=== PATIENT | female | born 1975 | race Asian ===

== ENCOUNTER → 2018-07-22 | Outpatient (CLI) | payer BC ==
--- NOTE | 2018-07-22 15:06 | WOMENS IMAGING REPORT ---
EXAM DESCRIPTION: BILAT SCREENING MAMMO W/CAD COMPLETED DATE/TIME: 07/22/2018 2:52 pm REASON FOR STUDY: ROUTINE SCREENING Z12.31 Z12.31 ENCNTR SCREEN MAMMOGRAM FOR MALIGNANT NEOPLASM OF ZACH COMPARISON: None. TECHNIQUE: Standard craniocaudal and mediolateral oblique views of each breast recorded using digita l acquisition. LIMITATIONS: None. FINDINGS: No masses, calcifications or architectural distortion. No areas of suspicion. Read with the assistance of CAD. .[facility] - R2 Cenova Version 1.3 .[facility] - R2 Cenova Version 1.3 .[facility] - R2 Cenova Version 2.4 .[facility] - R2 Cenova Version 2.4 .[facility] - R2 Purchasing And Claims Supervisor Version 9.2 IMPRESSION: NORMAL MAMMOGRAM. BIRADS 1. BREAST DENSITY: c. The breasts are heterogeneously dense, which may obscure small masses. BIRAD: 1 NEGATIVE RECOMMENDATION: ROUTINE SCREENING COMMENT: The patient has been notified of the results by letter per SA requirements. Additional no tification policies are in place for contacting patient with suspicious or incomplete findings. Quality ID #[id number]: The [employer] recommends an annual screening mammogram for women aged 40 years or over. This facility utilizes a reminder system to ensure that all patients receive reminder letters, and/or direct phone calls for appointments. This includes reminders for routine scr eening mammograms, diagnostic mammograms, or other Breast Imaging Interventions when appropriate. Th is patient will be placed in the appropriate reminder system. The [employer] [place] [employer] (ACR) has developed recommendations for screening MRI of the breast s in certain patient populations, to be used in conjunction with mammography. Breast MRI surveillanc e may be appropriate for women with more than 20% lifetime risk of developing breast cancer as deter mined by genetic testing, significant family history of the disease, or history of mantle radiation f or Hodgkins Disease. ACR Practice Guidelines 2008. TECHNICAL DOCUMENTATION: FINDING NUMBER: (1) ASSESSMENT: (1) JOB ID: [id number] [employer]- All Rights Reserved Reading location - IP/workstation name: [email or web address]
== END ==
LOC: WI 14:47
PROVIDERS: ATTEND Nurse Practitioner Family
DX: Z12.31 Encounter for screening mammogram for malignant neoplasm of breast (principal)
CPT/HCPCS: 77067

== ENCOUNTER 2020-04-07 12:12 | Emergency (ER) | payer BC ==
--- NOTE | 2020-04-07 12:33 | ER Document Report ---
ED Medical Screen (RME) - General Chief Complaint: Chest Pain Stated Complaint: CHEST PAIN Time Seen by Provider: 04/07/20 12:30 Primary Care Provider: CLARA LEVI FNP-C [Primary Care Provider] - Follow up as needed Notes: This 45-year-old female with sudden onset substernal chest pain this morning she has had some intermittent bouts in the past she does have a familial history of VA. TRAVEL OUTSIDE OF THE U.S. IN LAST 30 DAYS: No - Related Data Allergies/Adverse Reactions: No Known Allergies Allergy (Unverified 04/07/20 12:26) Physical Exam - Vital signs Vitals: Temp Pulse Resp BP Pulse Ox 98.7 F 67 14 138/74 H 98 04/07/20 12:22 04/07/20 12:22 04/07/20 12:22 04/07/20 12:22 04/07/20 12:22 Course - Vital Signs Vital signs: Temp Pulse Resp BP Pulse Ox 98.7 F 67 14 138/74 H 98 04/07/20 12:22 04/07/20 12:22 04/07/20 12:22 04/07/20 12:22 04/07/20 12:22 Doctor's Discharge - Discharge Referrals: CLARA LEVI FNP-C [Primary Care Provider] - Follow up as needed
[2020-04-07 13:12] LABS: ABSOLUTE LYMPHOCYTES (AUTO) 1.6 10^3/uL (0.5-4.7); ABSOLUTE MONOCYTES (AUTO) 0.5 10^3/uL (0.1-1.4); ABSOLUTE NEUT (AUTO) 4.7 10^3/uL (1.7-8.2); BASOPHILS % (AUTO) 0.4 % (0-2); EOSINOPHILS % (AUTO) 0.1 % (0-6); HEMATOCRIT 43.3 % (36.0-47.0); HEMOGLOBIN 14.8 g/dL (12.0-15.5); LYMPHOCYTES % (AUTO) 22.7 % (13-45); MEAN CORPUSCULAR VOLUME 94 fl (80-97); MONOCYTES % (AUTO) 7.7 % (3-13); PLATELET COUNT 225 10^3/uL (150-450); RED BLOOD COUNT 4.61 10^6/uL (3.72-5.28); RED CELL DISTRIBUTION WIDTH 12.6 % (11.5-14.0); SEGMENTED NEUTROPHILS % (AUTO) 69.1 % (42-78); TOTAL CELLS COUNTED % (AUTO) 100 %; WHITE BLOOD COUNT 6.9 10^3/uL (4.0-10.5)
[2020-04-07 13:28] LABS: ALBUMIN 4.9 g/dL (3.5-5.0); ALKALINE PHOSPHATASE 47 U/L (38-126); ANION GAP 8 (5-19); ASPARTATE AMINO TRANSFERASE 24 U/L (14-36); BILIRUBIN,TOTAL 0.7 mg/dL (0.2-1.3); BLOOD UREA NITROGEN 10 mg/dL (7-20); CALCIUM 9.5 mg/dL (8.4-10.2); CARBON DIOXIDE 25 mmol/L (22-30); CHLORIDE 104 mmol/L (98-107); GLUCOSE 121 mg/dL (75-110); POTASSIUM 3.9 mmol/L (3.6-5.0); TOTAL PROTEIN 8.2 g/dL (6.3-8.2)
--- NOTE | 2020-04-07 13:42 | RADIOLOGY REPORT (SQ) ---
EXAM DESCRIPTION: CT HEAD WITHOUT IMAGES COMPLETED DATE/TIME: 04/07/2020 12:56 pm REASON FOR STUDY: pain COMPARISON: None. TECHNIQUE: Axial images acquired through the brain without intravenous contrast. Images reviewed wi th bone, brain and subdural windows. Additional sagittal and coronal reconstructions were generated. Images stored on PACS. All CT scanners at this facility use dose modulation, iterative reconstruction, and/or weight based d osing when appropriate to reduce radiation dose to as low as reasonably achievable (ALARA). [facility]: Dose Right [facility]: CareDose [facility]: Dose Right [facility]: Teradose 4D [facility]: Attracta RADIATION DOSE: CT Rad equipment meets quality standard of care and radiation dose reduction techniq ues were employed. CTDIvol: 53.2 mGy. DLP: 1017 mGy-cm. mGy. LIMITATIONS: None. FINDINGS: VENTRICLES: Normal size and contour. CEREBRUM: No masses. No hemorrhage. No midline shift. No evidence for acute infarction. Normal gra y/white matter differentiation. No areas of low density in the white matter. CEREBELLUM: No masses. No hemorrhage. No alteration of density. No evidence for acute infarction. EXTRAAXIAL SPACES: No fluid collections. No masses. ORBITS AND GLOBE: No intra- or extraconal masses. Normal contour of globe without masses. CALVARIUM: No fracture. PARANASAL SINUSES: No fluid or mucosal thickening. SOFT TISSUES: No mass or hematoma. OTHER: No other significant finding. IMPRESSION: NORMAL BRAIN CT WITHOUT CONTRAST. EVIDENCE OF ACUTE STROKE: NO. COMMENT: Quality ID # [id number]: Final reports with documentation of one or more dose reduction techniques (e.g., Automated exposure control, adjustment of the mA and/or kV according to patient size, use of iterative reconstruction technique) TECHNICAL DOCUMENTATION: JOB ID: [id number] 2010 [employer]- All Rights Reserved Reading location - IP/workstation name: [email or web address]
--- NOTE | 2020-04-07 17:44 | ER Document Report ---
ED General <VICTORIASILVESTRE NG - Last Filed: 04/07/20 18:41> - General TRAVEL OUTSIDE OF THE U.S. IN LAST 30 DAYS: No <RAMESH OLGUIN - Last Filed: 04/08/20 02:59> - General Chief Complaint: Chest Tightness Stated Complaint: CHEST PAIN Time Seen by Provider: 04/07/20 12:30 Primary Care Provider: [facility] [Provider Group] - Follow up as needed [facility] [Outside] - Follow up as needed [facility] [Outside] - Follow up as needed [facility] [Outside] - Follow up as needed CLARA LEVI FNP-C [Primary Care Provider] - Follow up as needed - HPI Notes: This is a 45-year-old female who presents to the emergency department for evaluation of chest pain. She states she is had intermittently for some time, but got it today during a meeting where they were talking about mandatory masks. She states that she feels foggy when she wears a mask. She also admits that it may be secondary to stress. She really will get into details with me in regards to that. She talks about a divorce that was several years ago. She talks about her children, but makes no specific references. She denies any suicidal or homicidal ideation. She denies any visual or auditory hallucination. She states she just feels "hopeless." She states that she feels like her lungs and heart are being squeezed. She feels some shortness of breath. Some occasional nausea. She denies any diaphoresis or near syncope. She used to see a counselor in [place], but has not since moving to this area. She was recommended to be on medications, was not compliant with them. She admitted to a history of self injury, including cutting. She also states she tried to commit suicide as a teenager, when her mother committed suicide. (RMAESH OLGUIN) - Related Data Allergies/Adverse Reactions: No Known Allergies Allergy (Unverified 04/07/20 12:26) Past Medical History - General Information source: Patient - Social History Smoking Status: Current Every Day Smoker Frequency of alcohol use: None Drug Abuse: Marijuana Family History: Other - Depression in mother Patient has homicidal ideation: No Psychiatric Medical History: Reports: Hx Anxiety, Hx Bipolar Disorder, Hx Post Traumatic Stress Disorder <RAMESH OLGUIN - Last Filed: 04/08/20 02:59> Review of Systems - Review of Systems Cardiovascular: See HPI Neurological/Psychological: See HPI -: Yes All other systems reviewed and negative <RAMESH OLGUIN - Last Filed: 04/08/20 02:59> Physical Exam <RAMESH OLGUIN - Last Filed: 04/08/20 02:59> - Vital signs Vitals: Temp Pulse Resp BP Pulse Ox 98.7 F 67 14 138/74 H 98 04/07/20 12:22 04/07/20 12:22 04/07/20 12:22 04/07/20 12:22 04/07/20 12:22 - Notes Notes: This is an anxious appearing 45-year-old female who appears her stated age. Upon interviewing the patient becomes more anxious, then tearful. She does make good eye contact, does not seem to be reacting to internal stimuli. She is cooperative with examiner. Vital signs reviewed, please refer to chart. Head is normocephalic, atraumatic. Pupils equal round, reactive to light. Neck is supple without meningismus. Heart is regular rate and rhythm. Lungs are clear to auscultation bilaterally. Abdomen is soft, nontender, normoactive bowel sounds throughout. Extremities without cyanosis, clubbing. Posterior calves are nontender. Peripheral pulses are equal. Skin is warm and dry. Patient is awake, alert, oriented x3. Cranial nerves II - XII are grossly intact without focal neurological deficits. Strength is plus 5 out of 5 bilateral upper and lower extremities. Sensation is intact. Reflexes symmetrical. Intact taqslh-[id number]-exrbkn, rapid alternating movements, [id number]. (RAMESH OLGUIN) Course - Laboratory Result Diagrams: 04/07/20 12:45 04/07/20 12:45 <SILVESTRE BORRERO - Last Filed: 04/07/20 18:41> - Laboratory Result Diagrams: 04/07/20 12:45 04/07/20 12:45 - Diagnostic Test Radiology reviewed: Reports reviewed <RAMESH OLGUIN - Last Filed: 04/08/20 02:59> - Re-evaluation Re-evalutation: 04/07/20 17:43 Patient presents to the emergency department for evaluation. Initial laboratory investigation was ordered through triage. CT head was normal. She has a normal neurological exam. I suspect most of this is stress related. I did review her blood work which is unremarkable, EKG was unremarkable. I did order a chest x- ray in this patient with chest pain. I also added a consult to our psychosocial team. Case was discussed with Fifi to work out possible outpatient counseling. Patient is amenable to this plan. She is currently stable, we will continue to monitor. 04/07/20 18:56 Psychosocial evaluation occurred. Patient feels safe going home. She is set up with outpatient resources. I will go ahead and start BuSpar 5 mg twice a day for her anxiety, which I do believe is a large component of her illness at this time. We will give her a work excuse. She is to follow-up with [facility], primary care, and return to the ED with worsening or new concerning symptoms of any sort. (RAMESH OLGUIN) - Vital Signs Vital signs: Temp Pulse Resp BP Pulse Ox 98.1 F 67 20 118/87 H 97 04/07/20 18:58 04/07/20 12:22 04/07/20 18:58 04/07/20 18:58 04/07/20 18:58 - Laboratory Laboratory results interpreted by me: 04/07/20 12:45 Sodium 136.7 L Glucose 121 H - EKG Interpretation by Me Additional EKG results interpreted by me: 04/07/20 17:44 Sinus mechanism with a rate of 70 bpm. Normal axis and intervals. No acute ST changes concerning for ischemia or infarction. (RAMESH OLGUIN) Discharge <SILVESTRE BORRERO - Last Filed: 04/07/20 18:41> <RAMESH OLGUIN - Last Filed: 04/08/20 02:59> - Discharge Clinical Impression: Anxiety, Depression, Stress Condition: Stable Disposition: HOME, SELF-CARE Additional Instructions: You have been evaluated by both medical and behavioral health teams for anxiety and depression. You have been deemed appropriate for discharge. While in the emergency department you received the following services/or had access to: Medical screening and assessment, nursing services, dietary services, pharmacological services, one-on-one counseling and/or psychotherapy, environmental services, and continuous observation by a patient safety and occupational health manager. Medication such as Buspar is often used to help manage anxiety and depression. It is nonaddictive. You are recommended to establish services with a local outpatient mental health provider for both medication management and therapy. You should also follow up with your Primary Care Provider for your Thyroid as it can affect mood if your levels are off. Anxiety (often anxiety and depression go hand in hand) The physician feels that some of your health problems are being caused by anxiety. Anxiety affects your health in many ways. Anxiety alone can cause palpitations, sweats, chest pains, abdominal pains, shortness of breath, and headaches. It contributes to ulcer disease, high blood pressure, irritable bowel syndrome, and has been shown to cause flare-ups of many other diseases. Anxiety is not a simple disorder to treat. If the anxiety is due to recent life stresses, you may simply need time to "work through" the changes. If the anxiety is due to an underlying unhappiness with yourself or due to psychiatric disturbance, professional help will be needed. Your physician can refer you for further help if needed. Anti-anxiety medication is occasionally given if the stress is acute or if you are having trouble sleeping. Chronic or frequent use of these medications is not a good idea because the body becomes reliant on it, preventing you from dealing with life's normal stresses. Depression (often anxiety and depression go hand in hand) Your evaluation reveals that you have mental depression. While symptoms may be vague, they often include disturbance of sleep, fatigue, loss of appetite, and general loss of interest in life. While depression may be a side effect of drugs, or a reaction to a major change in your life, many cases have no known cause. If depression is acute, and related to a major loss in your life, you can expect it to clear completely with time. If you have been depressed a long time, are prone to repeated bouts of depression or low mood, or have been thinking of suicide, get help. Depression can be treated with anti-depressant medication and counselling. Long-term depression will often take a few weeks to clear, even with appropriate medication. Follow-up care is important. Contact your physician, the hospital emergency center, crisis line, or your counsellor if you are losing control or having self-destructive thoughts. Follow-Up: You should take medication as prescribed. You are recommended to follow up with your Primary Care Provider and establish services with a local mental health provider. You have been provided the mental health outpatient resource sheet which highlighted [facility] (sounds like that's where you went in [place]), [facility] and [facility]. All of these providers accept your insurance and can provide both medication management and therapy. You have also been provided both mobile crisis numbers. If your symptoms persist or worsen contact your physician immediately, utilize mobile crisis or return to the emergency department at any time. Prescriptions: Buspirone HCl [Buspar 10 mg Tablet] 5 mg PO BID #40 tablet Forms: Return to Work Referrals: CLARA LEVI FNP-C [Primary Care Provider] - Follow up as needed [facility] [Outside] - Follow up as needed [facility] [Outside] - Follow up as needed [facility] [Outside] - Follow up as needed [facility] [Provider Group] - Follow up as needed
--- NOTE | 2020-04-07 18:21 | RADIOLOGY REPORT (SQ) ---
EXAM DESCRIPTION: CHEST 2 VIEWS IMAGES COMPLETED DATE/TIME: 04/07/2020 4:55 pm REASON FOR STUDY: chest pain COMPARISON: None. EXAM PARAMETERS: NUMBER OF VIEWS: two views TECHNIQUE: Digital Frontal and Lateral radiographic views of the chest acquired. RADIATION DOSE: NA LIMITATIONS: none FINDINGS: LUNGS AND PLEURA: No opacities, masses or pneumothorax. No pleural effusion. MEDIASTINUM AND HILAR STRUCTURES: No masses or contour abnormalities. HEART AND VASCULAR STRUCTURES: Heart normal size. No evidence for failure. BONES: No acute findings. HARDWARE: None in the chest. OTHER: No other significant finding. IMPRESSION: NO ACUTE RADIOGRAPHIC FINDING IN THE CHEST. TECHNICAL DOCUMENTATION: JOB ID: [id number] 2010 [employer]- All Rights Reserved Reading location - IP/workstation name: [id number]
[2020-04-07 19:05] VITALS: BP 118/87
--- NOTE | 2020-04-08 11:33 | PSYCHOLOGICAL NOTE ---
Psych Note - Psych Note Date seen by psych provider: 04/07/20 Time seen by psych provider: 18:02 - [id number] Psych Note: Presenting Problem: Patient is a 45 year old female who presented to the [facility] ED today via POV from work for Chest tightness and brain fog for the past week. Attending ED Physician said patient denied suicidal and homicidal ideation, mentioned stress (divorce a few years back, children, work), having gone to outpatient mental health in [place] when she lived there but nothing set up locally, patient cried during medical assessment, endorsed feeling hopeless and had scars on arms from cutting history. Patient identified She was going to [facility] in [place] a couple years ago for therapy and medication. She stated she did take the medication (Prozac and something else she could not recall) but it felt like it didn't help so she stopped. She stated she still has the medications and plans to take them to [facility] for old prescription drop off. She denied current suicidal ideation and admitted to having "thoughts but could never do anything and doesn't want to." She acknowledged as a child and teen (between ages [age]) she had cutting behaviors (showed arm and said the scars were from then) and was hospitalized in [facility] and [facility]. She admitted to an overdose as a teen, had to have stomach pumped and hospitalized in [place]. Patient denied urges to cut and described getting "frustrated, clenching up/body tensing up." She reported she was diagnosed with PTSD "because of breakdown she had due to mother." Patient identified she lives with her sister and her (patient's 14 year old daughter), has two sons (one works at [employer] and one is in the [employer]) and the Divorce took place in 2013. Patient stated things like breathing and exercising used to help as coping skills but she has not had anything consistent lately. She asked about a work note and said "I came from work so my boss said I would need a work note about when I can come back." Discussed if she would like a mental health day tomorrow or to go immediately back to work. She decided n a mental health day which the Attending ED Physician said she would write. Also discussed with patient if she takes her thyroid medication ([facility] chart revi ew via patient's pharmacy listed only this medication being filled regularly by Ingrid Orellana), patient stated there are a couple days here and there she missed but takes a couple hours later and she stated she has seen Ingrid Orellana a few times. Psychoeducated patient on how thyroid affects mood and to ensure she has follow up to make sure her levels still look good. Patient was alert and oriented to self, person, place, time and situation. Mood was depressed with congruent affect (tears welled up in eyes a couple times but with discussion patient was able to keep her emotions under control. She denied current suicidal, homicidal and self injury urges. She admitted to history of self injury and suicide attempts as a child/teen. Patient did not appear to be responding to internal stimuli as evidenced by fair eye contact and answering questions appropriately when addressed. Thought processes were linear and organized. Conversational speech was within normal limits for rate, tone and prosody. Intellectual abilities are estimated to be average. Insight, judgment and impulse control were fair as evidenced discussing and processing thoughts/feelings/emotions. Clinical Presentation: Anxiety Depression Diagnosis: PTSD by history per patient Medication recommendations: Informed Attending ED Physician starting medications for anxiety include things like Vistaril and Buspar. Noted Anxiety seems significant and there seems to be depression. Buspar addressed both, Vistaril is mainly for anxiety. Impression/Plan: Patient is cleared from acute psychiatric services. She has been consistent with multiple providers in terms of denying suicidal and homicidal ideation. She admitted to history of both as a child/teen with ho spitalizations. She reported not being linked to outpatient mental health in 2 years since [facility] in [place]. She was open to medication for anxiety/depression and local linkage. Psychoeducated patient on medications taking a good month before doing exactly what they are meant to do, feeling effects sooner, many medications cause drowsiness when you first start them and the importance of maintaining thyroid since it too affects emotions/mood. Patient got a prescription from ED Physician for Buspar and getting a work note to go back Saturday so she can take a mental health day. Provided outpatient mental health resource sheet which highlighted both [facility] numbers for crisis/talk therapy/linkage to other services and supports, [facility] (since had been going to the [facility] two years ago), as well as [facility] and [facility]. Explained she should call first thing tomorrow morning to schedule an appointment and that her Primary Care Provider may need to continue prescribing medication until she can be seen by mental health. Consulted with Dr. Orellana regarding the management and care of patient. ED Physician in agreement with recommendations.
--- NOTE | 2020-04-08 19:37 | EKG REPORT ---
SEVERITY:- NORMAL ECG - SINUS RHYTHM : Confirmed by: Amy Viera 08-Apr-2020 19:37:04
== END 2020-04-07 19:05 | disposition home or self-care (01) ==
LOC: ER 12:12
DX: F41.9 Anxiety disorder, unspecified (principal); F32.9 Major depressive disorder, single episode, unspecified; F43.9 Reaction to severe stress, unspecified; R07.9 Chest pain, unspecified; R11.0 Nausea; F17.200 Nicotine dependence, unspecified, uncomplicated
CPT/HCPCS: 36415; 70450; 71046; 80053; 84484; 85025; 93005; 93010; 99285

== ENCOUNTER 2020-04-14 19:11 | Emergency (ER) | payer BC ==
--- NOTE | 2020-04-14 22:30 | EKG REPORT ---
SEVERITY:- BORDERLINE ECG - SINUS RHYTHM PROBABLE LEFT ATRIAL ABNORMALITY : Confirmed by: Gabriella Licea MD 14-Apr-2020 22:30:09
--- NOTE | 2020-04-14 22:35 | ER Document Report ---
ED Psych Disorder / Suicide - General Chief Complaint: Psychiatric Stated Complaint: PSYCH PROBLEM Time Seen by Provider: 04/14/20 22:19 Primary Care Provider: CLARA LEVI FNP-C [Primary Care Provider] - Follow up as needed Notes: Patient is a 45-year-old female who presents emergency department with auditory hallucinations. Patient was at home and was having bizarre behavior. Her sister was at home and called EMS. EMS gave her 300 mg of ketamine IM, as she was not cooperating. Patient states that she does not remember exactly what was happening. Patient states that she has some Suicidal ideation, but has no plan. Patient denies any chest pain, shortness of breath, difficulty breathing. TRAVEL OUTSIDE OF THE [place] IN LAST 30 DAYS: No - Related Data Allergies/Adverse Reactions: No Known Allergies Allergy (Unverified 04/07/20 12:26) Home Medications: Hydroxizine 50mg TID PRN. Levothyroxine .01 mg daily. Bursirone 5mg BID Past Medical History - General Information source: Patient - Social History Smoking Status: Unknown if Ever Smoked Family History: Other - Depression in mother Patient has homicidal ideation: No Psychiatric Medical History: Reports: Hx Anxiety, Hx Bipolar Disorder, Hx Post Traumatic Stress Disorder Review of Systems - Review of Systems Notes: REVIEW OF SYSTEMS: CONSTITUTIONAL : Denies recent illness. Denies recent unintentional weight loss. Denies fever, chills, or sweats. EENT: Denies eye, ear, throat, or mouth pain, discharge, or symptoms. Denies nasal or sinus congestion. CARDIOVASCULAR: Denies chest pain. RESPIRATORY: Denies shortness of breath, cough, congestion, difficulty breathing, or wheezing. GASTROINTESTINAL: Denies nausea, vomiting, and diarrhea. Denies abdominal pain. Denies constipation. GENITOURINARY: Denies difficulty urinating, burning, blood in urine, urgency or frequency. MUSCULOSKELETAL: Denies neck and back pain. Denies joint pain or swelling. SKIN: Denies rash, itchiness, or lesions HEMATOLOGIC : Denies easy bruising or bleeding. LYMPHATIC: Denies swollen, painful, enlarged glands. NEUROLOGICAL: Denies no numbness or tingling denies weakness. Denies headache. Denies altered mental status. Denies alteration in speech. PSYCHIATRIC: See HPI. All other systems reviewed and negative. Physical Exam - Vital signs Vitals: Temp 99.3 F 04/14/20 19:12 - Notes Notes: PHYSICAL EXAMINATION: GENERAL: Appears well, healthy, well-nourished, no acute distress. HEAD: Normocephalic, atraumatic. EYES: PERRL, conjunctiva normal, all extraocular movements intact, sclera nonicteric ENT: Moist mucous membranes. NECK: Supple, no noticeable swelling, redness, rash. Normal range of motion. LUNGS: Equal breath sounds bilaterally and clear to auscultation. No wheezes rales or rhonchi. CARDIOVASCULAR: S1-S2, regular rate, regular rhythm. Radial pulses 2+, normal. ABDOMEN: Normoactive bowel sounds. Soft, mildly tender mid lower abdomen, no guarding, no rebound tenderness, and no masses palpated. EXTREMITIES: Normal strength and range of motion, no pitting or edema. No cyanosis. NEUROLOGICAL: Moves all extremities upon command. Strength 5/5 in all extremities. PSYCH: Normal mood, normal affect. SKIN: Warm, dry. No rash, lesions, ulcerations noted. Normal skin turgor. Course - Re-evaluation Re-evalutation: 04/15/20 07:57 Patient's hematology is unremarkable. Chemistries show potassium of 3.2. Patient received 40 M EQ's of potassium last night. Patient was able to urinate and she does have nitrates and small amount of leukocytes in her urine. She also has 20 WBCs. We will send her urine for culture. Salicylates, acetaminophen, and alcohol are negative. Awaiting urine drug screen, but at this time, the patient is medically clear stable for mental health evaluation. - Vital Signs Vital signs: Temp Pulse Resp BP Pulse Ox 99.3 F 22 H 106/66 100 04/14/20 19:12 04/15/20 07:01 04/15/20 07:01 04/15/20 07:01 - Laboratory Result Diagrams: 04/14/20 19:26 04/14/20 19:26 Laboratory results interpreted by me: 04/14/20 04/15/20 19:26 06:25 Potassium 3.2 L Est GFR (MDRD) Non-Af 50 L Glucose 147 H Urine Protein 30 H Urine Ketones TRACE H Urine Nitrite POSITIVE H Ur Leukocyte Esterase SMALL H Salicylates < 1.0 L Acetaminophen < 10 L Discharge - Discharge Clinical Impression: Auditory hallucinations, Suicidal ideation Urinary tract infection Qualifiers: Urinary tract infection type: acute cystitis Hematuria presence: without hematuria Qualified Code(s): N30.00 - Acute cystitis without hematuria Condition: Stable Disposition: PSYCH HOSP/UNIT Instructions: Urinary Tract Infection ([facility]) Referrals: CLARA LEVI FNP-C [Primary Care Provider] - Follow up as needed
[2020-04-14 23:19] LABS: ABSOLUTE BASOPHILS # (AUTO) 0.1 10^3/uL (0.0-0.2); ABSOLUTE LYMPHOCYTES (AUTO) 1.8 10^3/uL (0.5-4.7); ABSOLUTE MONOCYTES (AUTO) 0.9 10^3/uL (0.1-1.4); ABSOLUTE NEUT (AUTO) 6.3 10^3/uL (1.7-8.2); BASOPHILS % (AUTO) 0.6 % (0-2); EOSINOPHILS % (AUTO) 0.2 % (0-6); HEMATOCRIT 44.4 % (36.0-47.0); HEMOGLOBIN 15.5 g/dL (12.0-15.5); LYMPHOCYTES % (AUTO) 19.9 % (13-45); MEAN CORPUSCULAR HEMOGLOBIN 32.7 pg (27.0-33.4); MEAN CORPUSCULAR VOLUME 94 fl (80-97); MONOCYTES % (AUTO) 9.6 % (3-13); PLATELET COUNT 220 10^3/uL (150-450); RED BLOOD COUNT 4.75 10^6/uL (3.72-5.28); RED CELL DISTRIBUTION WIDTH 12.6 % (11.5-14.0); SEGMENTED NEUTROPHILS % (AUTO) 69.7 % (42-78); TOTAL CELLS COUNTED % (AUTO) 100 %; WHITE BLOOD COUNT 9.1 10^3/uL (4.0-10.5)
[2020-04-14 23:39] LABS: ALBUMIN 4.8 g/dL (3.5-5.0); ALKALINE PHOSPHATASE 43 U/L (38-126); ANION GAP 11 (5-19); ASPARTATE AMINO TRANSFERASE 28 U/L (14-36); BILIRUBIN,DIRECT 0.1 mg/dL (0.0-0.4); BILIRUBIN,TOTAL 0.6 mg/dL (0.2-1.3); BLOOD UREA NITROGEN 12 mg/dL (7-20); CALCIUM 9.9 mg/dL (8.4-10.2); CARBON DIOXIDE 23 mmol/L (22-30); CHLORIDE 105 mmol/L (98-107); GLUCOSE 147 mg/dL (75-110); POTASSIUM 3.2 mmol/L (3.6-5.0)
[2020-04-14 23:44] LABS: ACETAMINOPHEN < 10 ug/mL (10-30); ALCOHOL < 10 mg/dL (NONE DETECTED); SALICYLATE < 1.0 mg/dL (2.0-20.0)
[2020-04-15] MEDS ORDERED: POTASSIUM CHLORIDE 10 MEQ TABLET.ER PO ONE (00:34)
[2020-04-15] MEDS ORDERED: LORAZEPAM INJ 2 MG/1 ML VIAL IM ONE (01:18)
[2020-04-15] MEDS ORDERED: DIPHENHYDRAMINE HCL 50 MG/ML VIAL IV ONE (01:18)
[2020-04-15] MEDS ORDERED: DIPHENHYDRAMINE HCL 50 MG/ML VIAL IM ONE (01:28)
[2020-04-15 07:14] LABS: APPEARANCE,URINE CLOUDY; BILIRUBIN,URINE NEGATIVE (NEGATIVE); COLOR,URINE AMBER; GLUCOSE, URINE NEGATIVE (NEGATIVE); KETONES,URINE TRACE mg/dL (NEGATIVE); LEUKOCYTE ESTERASE,URINE SMALL (NEGATIVE); NITRITE,URINE POSITIVE (NEGATIVE); PROTEIN,URINE 30 mg/dL (NEGATIVE); URINE SPECIFIC GRAVITY 1.025; UROBILINOGEN,URINE NEGATIVE mg/dL (<2.0)
[2020-04-15] MEDS ORDERED: CEPHALEXIN 500 MG CAPSULE PO ONE (07:43)
[2020-04-15 08:05] LABS: URINE AMPHETAMINES SCREEN NEGATIVE; URINE BARBITURATES SCREEN NEGATIVE; URINE BENZODIAZEPINES SCREEN NEGATIVE; URINE COCAINE SCREEN NEGATIVE; URINE METHADONE SCREEN NEGATIVE; URINE PHENCYCLIDINE SCREEN NEGATIVE
[2020-04-15 08:06] LABS: URINE MARIJUANA (THC) SCREEN UNCONFIRMED POSITIVE
[2020-04-15] MEDS: CEPHALEXIN 500 MG CAPSULE PO SCH ×2 (09:16→17:32)
[2020-04-15] MEDS ORDERED: OLANZAPINE 2.5 MG TABLET PO ONE ×2 (14:52→17:00)
[2020-04-15] MEDS: BUSPIRONE HCL 10 MG TABLET PO SCH (17:32)
--- NOTE | 2020-04-15 17:56 | PSYCHOLOGICAL NOTE ---
Psych Note - Psych Note Date seen by psych provider: 04/15/20 Time seen by psych provider: 11:12 - [id number] Psych Note: Patient is a 45 year old female who presented to the ED last evening via EMS after her sister called them due to altered mental status: patient was in the corner of a room at the home, talking to herself and said she heard voices. Per medical documentation she was agitated on scene and EMS administered Ketamine 300MG intramuscular. Also medical documentation noted patient expressed suicidal ideation without a plan. She was subsequently put on a 24 Hour Petition for Evaluation. Patient was seen in the ED 04/07/2020 by Behavioral Health (specifically this clinician) for Chest Pain which medical felt was related to anxiety, as well as depression. At that time she reported a history of PTSD and admitted to previous hospitalizations as a child and teenager. She stated her then stresses were related to divorce from several years ago, her children and work. The medical provider provided a prescription for Buspar 5MG twice a day to help with management of anxiety and depression. Patient was given an outpatient resource sheet which noted [facility] (she had previously been to [facility] in [place] prior to moving to [place]), [facility] and [facility]. Patient reported the first night from 04/07/2020 discharge she took half a pill of the prescribed medication but after takes it in the morning with her Levothyroxine. She admitted to "irregular marijuana use, off and on, the last time I did was before coming to the ED the last time." She reported she smokes the marijuana from a glass bowl so sees it. Patient admitted to a history of drinking but said she does not do it anymore. She admitted to smoking cigarettes. When asked about the hearing voices she commented "it's like when I pray and meditate, something talks, I can sense it." Patient reported she followed up with [facility] (called it [facility]) the following Saturday after being discharged, there was a mix up when she got there, she was later, so had to wait but they did see her. She commented "I saw them later and got a prescription." Asked what medication they prescribed and she said "wait no they asked if what you guys had provided was okay and I said yes so no new medicat ion." When asked when her next follow up appointment was she said they did not give one. She gave verbal consent to speak with and include sister Cristina in plan of care. Patient stated she didn't know what brought her in due to "the state I was in." Patient presented with slow response time and her memory seemed off/she had confusion. She seemed sleepy as evidenced by staying in bed, not moving, with heavy eyelids. She appeared depressed with flat affect. Clinical Presentation: Altered Mental Status- Psychosis Depressed with flat affect Medication recommendations made by the psychiatric medication provider Dr. Florina HOLLINS., includes: Add Buspar 5MG twice a day for anxiety/calming effect/sleep/depression Add Zyprexa 2.5MG twice a day for psychosis/mood stabilization/impulse control Impression/Plan: Recommendation to maintain 24 Hour Petition for Evaluation. Patient presented 04/07/2020 for increased depression and anxiety, was sent home with Buspar 5MG twice a day, sounds like she was not taking it regularly and last evening had altered mental status (in the corner of a room of the house, talking to self, said she heard voices, was agitated at home and required medication from EMS for stabilization). Today she seems to have slow response time and memory issues/confusion about events (may be due to the Ketamine). She presented with depressed mood and flat affect. Provided medication regimen. Will reassess tomorrow for further determination of FULL IVC (it is unclear if current state is actual presentation or due to having had Ketamine yesterday for agitation). Consulted with Dr. Orellana regarding the management and care of patient. ED Physician in agreement with recommendations.
--- NOTE | 2020-04-15 18:12 | ER Document Report ---
Doctor's Note Notes: 04/15/20 18:11 Patient's vital signs are previous labs, diagnostic imaging reviewed. Reviewed mental health notes, nurses notes and previous vital signs. Patient is in no distress at this time. Does not directly answe if she is suicidal or homicidal. States she doesnt want anyone to get hurt. General: alert, oriented Heart: RRR Lungs: CTABL Abdomen: soft, non tender A&P: pending placement
[2020-04-15] MEDS ORDERED: ACETAMINOPHEN 325 MG TABLET PO ONE (18:17)
--- NOTE | 2020-04-15 18:17 | ER Document Report ---
Doctor's Note Notes: Patient's vital signs are previous labs, diagnostic imaging reviewed. Reviewed mental health notes, nurses notes and previous vital signs. Patient is in no distress at this time. States he is suicidal. States he has a headache. Similar to his migraines. General: Alert, oriented Heart: RRR Lungs: CTABL Skin: lesions on face A&P: Pending placement. 04/15/20 18:15
--- NOTE | 2020-04-15 20:41 | ER Document Report ---
Doctor's Note Notes: 04/15/20 20:41 I was notified by mental health that the patient continues to act altered compared to her base line. This was originially thought to be due to being given ketamine. A head CT was ordered for further evaluation.
--- NOTE | 2020-04-15 21:19 | RADIOLOGY REPORT (SQ) ---
EXAM DESCRIPTION: Noncontrast CT head CLINICAL HISTORY: 45 years Female altered mental status TECHNIQUE: Noncontrast CT head. All CT scans at this facility use dose modulation, iterative reconstruction, and/or weight based dosing when appropriate to reduce radiation dose to as low as reasonably achievable. COMPARISON: April 07, 2020. FINDINGS: Lennon matter, white matter, ventricles, and cisterns are within normal limits. No acute hemorrhage or mass effect. Visualized portions of paranasal sinuses and mastoids are clear. Visualized portions of the calvarium are within normal limits. IMPRESSION: 1. No acute intracranial findings. If there is clinical concern for acute stroke, consider MRI brain as a more sensitive evaluation.
[2020-04-16] MEDS: BUSPIRONE HCL 10 MG TABLET PO SCH ×2 (10:27→17:45)
[2020-04-16] MEDS: CEPHALEXIN 500 MG CAPSULE PO SCH ×2 (10:27→17:45)
[2020-04-16] MEDS: OLANZAPINE 2.5 MG TABLET PO SCH ×2 (11:34→17:45)
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
[2020-04-17] MEDS: CEPHALEXIN 500 MG CAPSULE PO SCH (09:14)
[2020-04-17] MEDS: OLANZAPINE 2.5 MG TABLET PO SCH ×2 (09:14→17:25)
[2020-04-17] MEDS: BUSPIRONE HCL 10 MG TABLET PO SCH ×2 (09:14→17:25)
[2020-04-17] MEDS ORDERED: LEVOTHYROXINE SODIUM 0.1 MG TABLET PO SCH (13:45)
--- NOTE | 2020-04-17 14:59 | ER Document Report ---
Doctor's Note Notes: 04/17/20 14:00 PHYSICAL EXAMINATION: GENERAL: Well-appearing and in no acute distress. HEAD: Atraumatic, normocephalic. EYES: sclera anicteric, conjunctiva are normal. ENT: nares patent. Moist mucous membranes. NECK: Normal range of motion, supple without lymphadenopathy LUNGS: CTAB and equal. No wheezes rales or rhonchi. HEART: Regular rate and rhythm without murmurs ABDOMEN: Soft, nontender, normal bowel sounds, no guarding. EXTREMITIES: Normal range of motion BACK: No midline tenderness, no step-off or deformity. No CVA tenderness NEUROLOGICAL: Cranial nerves grossly intact. Normal speech. PSYCH: Normal mood, normal affect. SKIN: Warm, Dry, normal turgor, no rashes or lesions noted Patient's urine culture reports susceptibility to amoxicillin and questionable susceptibility to cephalosporins, will change patient's prescription over to the amoxicillin at this time. Patient without any abdominal tenderness or flank pain. Patient otherwise nontoxic in appearance. Patient appears medically stable for discharge or transfer at this time, pending behavioral health team disposition
[2020-04-17] MEDS: AMOXICILLIN TRIHYDRATE 500 MG CAPSULE PO SCH ×2 (16:19→17:25)
[2020-04-18 09:19] VITALS: BP 112/70
--- NOTE | 2020-04-18 11:29 | PSYCHOLOGICAL NOTE ---
Psych Note - Psych Note Date seen by psych provider: 04/16/20 Time seen by psych provider: 11:58 - [id number] Psych Note: Patient is a 45 year old female who presented to the ED last evening via EMS after her sister called them due to altered mental status: patient was in the corner of a room at the home, talking to herself and said she heard voices. Per medical documentation she was agitated on scene and EMS administered Ketamine 300MG intramuscular. Also medical documentation noted patient expressed suicidal ideation without a plan. She was subsequently put on a 24 Hour Petition for Evaluation. Chart review indicated patient had a one time dose of Zyprexa 2.5MG yesterday (04/15/2020) at 1733 when it was supposed to be 2.5MG twice a day. Addressed this issue with the attended ED Nurse and Provider. A Head CT was conducted 04/15/2020 due to altered mental status with slow response time. There were not acute findings. Today patient was laying in bed on her left side so facing the door when this clinician walked in. She again presented depressed with flat affect. Her response time was still slow but better than yesterday, with more blinking of the eyes while she thought. Inquired who she had spoke to on the phone earlier and she said he sister Cristina. When asked if she felt herself she commented "not at the moment, I don't feel like myself, I don't believe how I am feeling." Clinical Presentation: Altered Mental Status- Psychosis Depressed with flat affect Medication recommendations made by the psychiatric medication provider Dr. Florina HOLLINS., includes: Add Zyprexa 2.5MG twice a day for psychosis/mood stabilization/impulse control (was supposed to be added yesterday) Impression/Plan: Recommendation for FULL IVC. Patient presented 04/07/2020 for increased depression and anxiety, was sent home with Buspar 5MG twice a day, sounds like she was not taking it regularly and last evening had altered mental status (in the corner of a room of the house, talking to self, said she heard v oices, was agitated at home and required medication from EMS for stabilization). Yesterday she had slow response time and memory issues/confusion about events which improved today but was still not like initital interaction with patient on 04/07/2020. She has continued to present with depressed mood and flat affect. Provided medication regimen yesterday but the mood stabilizer was only given as one time dose instead of scheduled as was requested. Head CT was clear and no acute findings. Consulted with Dr. Orellana regarding the management and care of patient. ED Physician in agreement with recommendations.
--- NOTE | 2020-04-18 11:39 | PSYCHOLOGICAL NOTE ---
Psych Note - Psych Note Date seen by psych provider: 04/17/20 Time seen by psych provider: 10:35 - Placement efforts started at 1035. Spoke with sister from [phone]. Psych Note: Patient is a 45 year old female who presented to the ED last evening via EMS after her sister called them due to altered mental status: patient was in the corner of a room at the home, talking to herself and said she heard voices. Per medical documentation she was agitated on scene and EMS administered Ketamine 300MG intramuscular. Also medical documentation noted patient expressed suicidal ideation without a plan. She was subsequently put on a 24 Hour Petition for Evaluation which was changed to FULL IVC yesterday. Today began placement efforts at 1035. At 1126 [facility] accepted patient.Will move forward with that placement. Patient gave verbal consent to keep her sister Cristina aware of plan of care. Called patient's sister and informed her of acceptance to [place] for tomorrow morning. She stated she would take care of patient's daughter. She was made aware patient would be calling her about taking care of her daughter. Patient called sister and they had an appropriate phone conversation. Provided patient with the [place] booklet. Spoke to sister Cristina from [phone]. She stated patient "had a similar episode before, she was paranoid." She stated her understanding was patient had stopped her thyroid medication. She asked if it has been administered to patient while in the ED and was informed it was started today. Also noted patient had said during the previous visit that she was taking her thyroid medication and this clinician had provided psychoeducation on how it affects mood. Sister stated EMT worker told her patient said she had been seeing mental health provider in [place] which sister said she was unaware of. Clinical Presentation: Altered Mental Status- Psychosis Depressed with flat affect Medication recommendations made by the psychiatric medication provider Dr. Florina HOLLINS., includes: Add Zyprexa 2.5MG twice a day for psychosis/mood stabilization/impulse control (was supposed to be added yesterday) Impression/Plan: Recommendation to continue FULL IVC and move forward with acceptance to [place] for tomorrow (04/18/2020) morning. Consulted with Dr. Orellana regarding the management and care of patient. ED Physician in agreement with recommendations.
== END 2020-04-18 09:24 ==
LOC: ER 19:11
DX: R45.851 Suicidal ideations (principal); N30.00 Acute cystitis without hematuria; R44.0 Auditory hallucinations
CPT/HCPCS: 93005; 99285; 96372; 36415; 87086; 80307 ×4; 84703; 85025; 87088; 80053; 81001; 87186; 93010; J1200; J3490 ×3; J2060

== ENCOUNTER → 2020-07-29 | Outpatient (CLI) | payer BC ==
--- NOTE | 2020-08-01 10:20 | WOMENS IMAGING REPORT ---
EXAM DESCRIPTION: 3D SCREENING MAMMO BILAT IMAGES COMPLETED DATE/TIME: 07/29/2020 2:02 pm REASON FOR STUDY: Z12.31 ENCNTR SCREEN MAMMOGRAM FOR MALIGNANT NEOPLASM OF BREAST Z12.31 ENCNTR SCR EEN MAMMOGRAM FOR MALIGNANT NEOPLASM OF ZACH COMPARISON: 2018 EXAM PARAMETERS: Views: Standard craniocaudal and mediolateral oblique views of each breast recorded using digital acquisition and breast tomosynthesis. Read with the assistance of CAD. .[facility] - [employer] Dial [place] Version 9.2 LIMITATIONS: None. FINDINGS: No suspicious masses, suspicious calcifications or architectural distortion. No areas of c oncern. IMPRESSION: NEGATIVE MAMMOGRAM. BIRADS 1. BREAST DENSITY: c. The breasts are heterogeneously dense, which may obscure small masses. BIRAD: ASSESSMENT: 1 NEGATIVE RECOMMENDATION: ROUTINE SCREENING COMMENT: The patient has been notified of the results by letter per MQSA requirements. Additional no tification policies are in place for contacting patient with suspicious or incomplete findings. Quality ID #[id number]: The [employer] recommends an annual screening mammogram for women aged 40 years or over. This facility utilizes a reminder system to ensure that all patients receive reminder letters, and/or direct phone calls for appointments. This includes reminders for routine scr eening mammograms, diagnostic mammograms, or other Breast Imaging Interventions when appropriate. Th is patient will be placed in the appropriate reminder system. TECHNICAL DOCUMENTATION: FINDING NUMBER: (1) ASSESSMENT: (1) JOB ID: [id number] 2010 [employer]- All Rights Reserved Reading location - IP/workstation name: [email or web address]
== END ==
LOC: WI 13:47
PROVIDERS: ATTEND Nurse Practitioner Family
DX: Z12.31 Encounter for screening mammogram for malignant neoplasm of breast (principal)
CPT/HCPCS: 77063; 77067